=== PATIENT | female | born 1970 | race Asian ===

== ENCOUNTER 2019-03-21 11:57 | Inpatient (IN) ==
[2019-03-21] MEDS ORDERED: SODIUM CHLORIDE 0.9% 1000ML 1,000 ML IV ONE (12:30)
[2019-03-21 12:43] LABS: Basophils # (auto) 0.05 K/uL (0-0.2); Basophils % (auto) 0.5 %; Eosinophils # (auto) 0.33 K/uL (0-0.5); Hematocrit (blood only) 37.7 % (37-47); Hemoglobin 12.4 g/dL (12.0-16.0); Immature Granulocytes # (auto) 0.02 K/uL (0.00-0.02); Immature Granulocytes % (auto) 0.2 %; Lymphocytes % (auto) 17.1 %; Mean Corpuscular Hemoglobin 27.7 pg (25-34); Mean Corpuscular Hgb Conc 32.9 g/dL (32-36); Mean Corpuscular Volume 84.2 fL (80-100); Mean Platelet Volume 8.8 fL (7.4-10.4); Monocytes # (auto) 0.57 K/uL (0.11-0.59); Monocytes % (auto) 5.1 %; Neutrophils # (auto) 8.21 K/uL (1.4-6.5); Neutrophils % (auto) 74.1 %; Platelet Count 207 K/uL (130-400); RDW Coefficient of Variation 12.8 % (11.5-14.5); RDW Standard Deviation 39.2 fL (36.4-46.3); Red Blood Count 4.48 M/uL (4.2-5.4); White Blood Count 11.08 K/uL (4.8-10.8)
--- NOTE | 2019-03-21 12:50 | XRay Report ---
XR chest 1V portable CLINICAL HISTORY: Chest pain. COMPARISON STUDY: No previous studies for comparison. FINDINGS: Lung volumes are normal. There is no pneumothorax or pleural effusion. Minimal left lower l abner opacity is noted. Nodular densities projecting over both lungs suggest nipple shadows. Cardiac si ze is normal. Mediastinal contours are normal. There is slight blunting of the left costophrenic angl e. IMPRESSION: 1. Minimal left lower lung opacity which favors a mild infectious process. Post treatment radiographs are recommended to exclude the possibility of an underlying nodule. 2. Nodular densities projecting over the lower lungs which favor nipple shadows. Electronically signed by: Reno Estrada M.D. 03/21/2019 12:49 PM
[2019-03-21 13:00] LABS: Alanine Aminotransferase 18 U/L (12-78); Aspartate Aminotransferase 11 U/L (15-37); BUN Creatinine Ratio 12.6 (10-20); Blood Urea Nitrogen 10 mg/dl (7-18); Calcium 9.3 mg/dl (8.5-10.1); Carbon Dioxide 26 mmol/L (21-32); Chloride 106 mmol/L (98-107); Creatinine Clr Calc Pharmacy 88.6 ml/min; Est GFR (African American) 98.8; Est GFR (Non-African American) 85.2; Glucose 82 mg/dl (70-99); Lipase 135 U/L (73-393); Magnesium 2.2 mg/dl (1.8-2.4); Potassium 3.7 mmol/L (3.5-5.1); Sodium 137 mmol/L (136-145)
[2019-03-21 13:11] LABS: Albumin Globulin Ratio 0.9 (0.9-2); Alkaline Phosphatase 90 U/L (45-117); Bilirubin,Total 0.5 mg/dl (0.2-1); Globulin 4.4 gm/dl (2.5-4.0); Phosphorus 3.3 mg/dl (2.5-4.9); Thyroid Stimulating Hormone 0.956 uIu/ml (0.300-4.500); Total Protein 8.4 gm/dl (6.4-8.2); Troponin I < 0.015 ng/ml (0-0.045)
[2019-03-21 13:16] LABS: Pregnancy Test, Serum Negative (Negative)
[2019-03-21] MEDS ORDERED: OPTIRAY 320 125ml IV PRN (13:31)
--- NOTE | 2019-03-21 13:38 | CT Scan Report ---
CT angio chest PE protocol CT DOSE: 670.11 mGycm HISTORY: 48 years-old Female with PE, history of PE. Acute shortness of breath TECHNIQUE: Multiple CTA images of the chest were obtained after the intravenous administration of 118 ml Optiray 320. Coronal and sagittal MIPS were obtained from the axial data set and were submitted for review. All measurements were obtained according to NASCET criteria. A dose lowering technique w as utilized adhering to the principles of ALARA. COMPARISON: Chest radiograph of same day FINDINGS: CTA: Heart is normal in size without pericardial effusion. No thoracic aortic aneurysm or dissection. Ther e is patency of the imaged great vessels. No mediastinal hematoma. No central pulmonary emboli. Pulmo nary blood of the lateral basal segment left lower lobe is noted with a 4.3 x 1.7 cm pulmonary infarc t. Additional patchy groundglass opacities of the left lung base suggest atelectasis versus additiona l infarcts. There is decreased flow within the left basilar pulmonary veins compatible with associate d oligemia. No evidence of right heart strain. CT CHEST: No focal thyroid nodule or adenopathy. Trace left pleural effusion. No pneumothorax. 9 x 7 mm pleural -based solid nodule of the right lower lobe is noted on image 87 of series 4. 1.2 x 0.9 mm fissural n odule seen about the right lung base on image 86 series 4 with adjacent groundglass density. No overt pulmonary edema. Central airways appear patent. No acute process of the imaged upper abdomen. Breast tissue and soft tissues appear unremarkable. The bones appear to be intact. There is no acute fracture. IMPRESSION: 1. Pulmonary emboli of the left lower lobe with left basilar pulmonary infarctions. 2. Trace left pleural effusion with mild left basilar atelectasis. 3. There are two pleural-based solid nodules of the right lung base measuring up to 1.2 cm. Three-mon follow-up recommended.. Please refer to below summary of Fleischner criteria recommendations for follow-up of incidental CT n odules (Saurabh Mccray, Guidelines for management of small pulmonary nodules detected on CT scans: A sta tement from the Fleischner Society, Radiology 237: [phone].) SOLID NODULES Multiple nodules size: >8 mm * Low risk patients: follow-up at 3-6 months, then consider further follow-up at 18-24 months * high risk patients: follow-up at 3-6 months, then at 18-24 months if no change Note: newly detected indeterminate nodule in persons 35 years of age or older. * Low risk patients: minimal or absent history of smoking and/or other known risk factors * high risk patients: history of smoking or of other known risk factors (e.g. first degree relative with lung cancer, or exposure to asbestos, radon, uranium) * if a nodule up to 8 mm is partly solid or is ground glass further follow-up is required after 24 m onths to exclude possible slow growing adenocarcinoma (JESSIE) The above report was generated using voice recognition software. It may contain grammatical, syntax o r spelling errors. Electronically signed by: Aden Olivares M.D. 03/21/2019 1:37 PM
--- NOTE | 2019-03-21 13:52 | CT Scan Report ---
ABDOMEN AND PELVIS CT WITH IV CONTRAST HISTORY: Acute shortness of breath with left lower chest and left flank pain left flank pain TECHNIQUE: Multiaxial CT images of the abdomen and pelvis were performed following the IV administrat ion of 121 cc of Optiray 320, A dose lowering technique was utilized adhering to the principles of A MARYCARMEN. COMPARISON STUDY: CTA chest of same day. FINDINGS: Pleural-based solid nodular opacities of the right lung base measure up to 1.2 cm per trace left pleu ral effusion with pulmonary infarctions and atelectasis. No pneumatosis or pneumoperitoneum. The imag ed inferior cardiac chambers are unremarkable. The gallbladder, liver, gallbladder, spleen, pancreas and adrenal glands appear unremarkable. Kidneys, ureters and urinary bladder are within normal limits . Prominence of the uterus and endometrium with endometrium measuring up to 11 mm. Subcentimeter invo luting follicle of the right ovary. Aorta is unremarkable. The venous thrombosis of the left common a nd external femoral arteries with multiple adjacent collateral vessels. There is narrowing at the sonido gin of the left common iliac vein. No bowel obstruction or bowel wall thickening. Terminal ileum is unremarkable. Appendix not diagnosti louis visualized. Bones appear intact. IMPRESSION: 1. Pulmonary infarctions of the left lung base with trace left pleural effusion. Pleural-based nodula r opacities of the right lung base may also reflect additional pulmonary infarction. Please refer to CT chest of same day for further details. 2. Deep venous thrombosis of the left common and external iliac veins with narrowing at the origin of the common iliac vein. Correlate clinically to exclude May Thurner syndrome. Multiple adjacent colla teral vessels suggests chronic etiology. 3. No bowel obstruction or bowel wall thickening. Electronically signed by: Aden Olivares M.D. 03/21/2019 1:51 PM
--- NOTE | 2019-03-21 15:47 | History & Physical Report ---
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 Add morphine for severe pain. Consult parts specialist. Consult search developer. Home medication reconciled. Repeat labs in a.m. CODE STATUS full code. 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 She was discharged from [facility] on February 06. Patient is currently on Eliquis. Today the patient presented to the emergency room with a complaints of left- sided pleuritic chest pain which started 1 AM. Currently she is feeling better. CT scan is suggestive of PE with possible pulmonary infarcts. She will be admitted for further evaluation and management. Allergies Allergy/AdvReac Type Severity Reaction Status Date / Time No Known Allergies Allergy Unknown Verified 03/21/19 13:47 Home Medications Home Medications Medication Instructions Recorded Confirmed Type apixaban [Eliquis] 5 mg PO BID 03/21/19 03/21/19 History cholecalciferol (vitamin D3) 1,000 unit PO DAILY 03/21/19 03/21/19 History lutein 6 mg PO DAILY 03/21/19 03/21/19 History Past Med/Surg History Medical History Clot Family History Other No significant family history Social History Preferred Language: Malay Communication Ability: Effective Beliefs That Will Affect Care: None Current Living Situation: Spouse Other Information That Helps Us Care for You: No Feels Safe at Home: Yes Safety Concerns: Feels Safe At This Time Smoking Status: Never smoker Hx Alcohol Use: No Hx Substance Use: No Review of Systems Review of Systems: All systems reviewed & are unremarkable except as noted in HPI & below Respiratory: + pain on inspiration and + pain with cough Physical Exam Physical Exam: GENERAL : No acute distress EYES: No icterus, gaze conjugate NOSE: No evidence of epistaxis MOUTH: No lesions or candidiasis, mucosa moist NECK: Supple LUNGS: CTA B/L, no wheezes, rales or rhonchi HEART: Regular, rate controlled ABDOMEN: Soft, NT, ND, BS Present EXTREMITIES: No LE edema, pedal pulses intact Mild left calf tenderness NEURO: A&OX3 Results & Data Vital Signs (Past 12 Hours) Vital Signs Temp Pulse Pulse Resp BP BP Pulse Ox 03/21/19 14:34 73 16 132/86 99 03/21/19 12:06 99.3 F 91 H 20 135/83 99 Laboratory Results 03/21/19 12:34 03/21/19 12:34 Diagnostic Findings ABDOMEN AND PELVIS CT WITH IV CONTRAST HISTORY: Acute shortness of breath with left lower chest and left flank pain left flank pain TECHNIQUE: Multiaxial CT images of the abdomen and pelvis were performed following the IV administration of 121 cc of Optiray 320, A dose lowering technique was utilized adhering to the principles of ALARA. COMPARISON STUDY: CTA chest of same day. FINDINGS: Pleural-based solid nodular opacities of the right lung base measure up to 1.2 cm per trace left pleural effusion with pulmonary infarctions and atelectasis. No pneumatosis or pneumoperitoneum. The imaged inferior cardiac chambers are unremarkable. The gallbladder, liver, gallbladder, spleen, pancreas and adrenal glands appear unremarkable. Kidneys, ureters and urinary bladder are within normal limits. Prominence of the uterus and endometrium with endometrium measuring up to 11 mm. Subcentimeter involuting follicle of the right ovary. Aorta is unremarkable. The venous thrombosis of the left common and external femoral arteries with multiple adjacent collateral vessels. There is narrowing at the origin of the left common iliac vein. No bowel obstruction or bowel wall thickening. Terminal ileum is unremarkable. Appendix not diagnostically visualized. Bones appear intact. IMPRESSION: 1. Pulmonary infarctions of the left lung base with trace left pleural effusion. Pleural-based nodular opacities of the right lung base may also reflect ad ditional pulmonary infarction. Please refer to CT chest of same day for further details. 2. Deep venous thrombosis of the left common and external iliac veins with narrowing at the origin of the common iliac vein. Correlate clinically to exclude May Thurner syndrome. Multiple adjacent collateral vessels suggests chronic etiology. 3. No bowel obstruction or bowel wall thickening.[facility], [place] [phone] XRay Report Patient: MILLIE MARIEAdmit Date: 03/21/19 MR#: [id number]: [id number] [facility] [place]NOTE 2] Acct ID:[id number]: Date: 1970City Zip: [place] [address] Age: 48Location: ED Sex: F Room/Bed: Att Phy:Diagnosis: PAIN WHEN BREATHING - REF BY DR Olivia Phy: PCP,NOService Date: 03/21/19 Fam Phy:Interpreting Phy: Reno Estrada MD Admit Phy: Ordering Phy: Mathew Whitley M.D. cc: ~ XR chest 1V portable CLINICAL HISTORY: Chest pain. COMPARISON STUDY: No previous studies for comparison. FINDINGS: Lung volumes are normal. There is no pneumothorax or pleural effusion. Minimal left lower lung opacity is noted. Nodular densities projecting over both lungs suggest nipple shadows. Cardiac size is normal. Mediastinal contours are normal. There is slight blunting of the left costophrenic angle. IMPRESSION: 1. Minimal left lower lung opacity which favors a mild infectious process. Post treatment radiographs are recommended to exclude the possibility of an underlying nodule. 2. Nodular densities projecting over the lower lungs which favor nipple shadows. Electronically signed by: Reno Estrada M.D. 03/21/2019 12:49 PM Dictated: 03/21/19 1247 Transcribed: 03/21/19 1247 Code Status & VTE Plan Code Status Full code PG Care Time/CCT Total # of Minutes Spent Total Time Spent with Patient: Total time spent is greater than 50% in coordination of care (as documented) at patient's floor/unit and/or counseling patient: 60 min
--- NOTE | 2019-03-21 15:54 | Emergency Department Note ---
Entered by Louis Man acting as a scribe for Mathew Whitley MD History of Present Illness General Chief complaint: Respiratory Problems Stated complaint: PAIN WHEN BREATHING - REF BY Time Seen by Provider: 03/21/19 12:30 Source: patient Mode of arrival: ambulatory Limitations: no limitations History of Present Illness Onset (ago): hour(s) greater than 10 Location: chest Pain Consistency: + constant Maximum Pain Intensity: 4 Quality: + sharp Associated symptoms: + other (stomach pain) Treatments prior to arrival: other (Tylenol ) The patient is a 48 year old femal who presents to the Emergency Room with complaints of an episode of constant sharp left lower flank pain with respiration that started this morning 11 hours prior to arrival. The patient states that she was unable to sleep early this morning and took some Tylenol upon being woken up with sharp pain. The patient denies any stomach pain. The patient notes that she was able to go back to sleep. She reports that she work up a few hours later and the pain seemed better. The patient notes the pain reports that she was recently admitted at [place] for six days due to abnormal blood work. She reports that that that she received an MRI for her brain two days ago. She reports that she received testing for her feet, liver, lungs, and brain. She states that she has a history blood clots. The patient notes that she had brain bleeding in her head. She notes that her platelet tests were very low and that she has been on Eliquis. Home Medications Home Medications Medication Instructions Recorded Confirmed Type apixaban [Eliquis] 5 mg PO BID 03/21/19 03/21/19 History cholecalciferol (vitamin D3) 1,000 unit PO DAILY 03/21/19 03/21/19 History lutein 6 mg PO DAILY 03/21/19 03/21/19 History Allergies Allergy/AdvReac Type Severity Reaction Status Date / Time No Known Allergies Allergy Unknown Verified 03/21/19 13:47 Past Med/Surg History Medical History Clot Family History Other No significant family history Social History Preferred Language: Turkish Communication Ability: Effective Beliefs That Will Affect Care: None Current Living Situation: Spouse Other Information That Helps Us Care for You: No Feels Safe at Home: Yes Safety Concerns: Feels Safe At This Time Smoking Status: Never smoker Hx Alcohol Use: No Hx Substance Use: No Review of Systems See HPI for pertinent positives & negatives. and A total of 10 systems reviewed and were otherwise negative Physical Exam Vital Signs Vital Signs - 24 hr 03/21/19 12:06 03/21/19 12:52 03/21/19 13:13 Temperature 37.4 C Temperature Source Oral Sepsis Recent Fever Within 48 Hours No Sepsis New/Unexplained Change in Mental Status No Sepsis Action Taken by Nursing No Action Required Pulse Rate 91 H Pulse Rate [Right Finger] Pulse Rhythm [Right Finger] Pulse Strength [Right Finger] Respiratory Rate 20 Respiratory Effort / Characteristics Non-Labored Spontaneous Respiratory Depth Normal Respiratory Pattern Regular Blood Pressure 135/83 Blood Pressure [Right Arm] Blood Pressure Mean 100 Blood Pressure Mean [Right Arm] Blood Pressure Position Sitting Blood Pressure Position [Right Arm] Pulse Oximetry 99 Oxygen Delivery Method Room Air Room Air Room Air 03/21/19 14:34 Temperature Temperature Source Sepsis Recent Fever Within 48 Hours Sepsis New/Unexplained Change in Mental Status Sepsis Action Taken by Nursing Pulse Rate Pulse Rate [Right Finger] 73 Pulse Rhythm [Right Finger] Regular Pulse Strength [Right Finger] Normal Respiratory Rate 16 Respiratory Effort / Characteristics Non-Labored Respiratory Depth Normal Respiratory Pattern Regular Blood Pressure Blood Pressure [Right Arm] 132/86 Blood Pressure Mean Blood Pressure Mean [Right Arm] 101 Blood Pressure Position Blood Pressure Position [Right Arm] Lying Pulse Oximetry 99 Oxygen Delivery Method Room Air GENERAL: Awake, alert, uncomfortable-appearing, in no distress HENT: NC/AT. Oropharynx with dry mucous membranes and otherwise unremarkable. EYES: Normal conjunctiva. Sclera non-icteric. EOMI. No nystamgus. PEARRL. NECK: Supple. No nuchal rigidity. FROM. No JVD. RESPIRATORY: Diminished BS left base, otherwise CTAB. CARDIAC: Regular rate, normal rhythm. Extremities warm and well perfused. Pulses equal. ABDOMEN: Soft, non-distended. No tenderness to palpation. No rebound or guarding. No masses. RECTAL: Deferred. MUSCULOSKELETAL: Chest examination reveals no tenderness. The back is symmetrical on inspection without obvious abnormality. There is no CVA tenderness to palpation. No joint edema. LOWER EXTREMITIES: Calves are equal size bilaterally and non-tender. No edema. No discoloration. NEURO: Normal sensorium. No sensory or motor deficits noted. SKIN: No rash or jaundice noted. Course 1247: The patient was evaluated in room B09. A complete history and physical exam was performed. 1511: I dicussed the patient's case, Chirag [facility] hospitalist. The patient will be evaluated for further management. Administered Medications Apixaban (Eliquis) 5 mg PO BID SONIA Stop: 04/20/19 20:59 Last Admin: 03/21/19 21:11 Dose: 5 mg Documented by: [id number] Discontinued Medications Sodium Chloride (Nss 1000ml) 1,000 mls @ 999 mls/hr IV .Q1H1M ONE Stop: 03/21/19 13:30 Last Infusion: 03/21/19 14:20 Dose: 0 mls/hr Documented by: [id number] Admin: 03/21/19 13:03 Dose: 999 mls/hr Documented by: [id number] Ioversol (Optiray 320 125ml) 121 ml IV ONCE PRN PRN Reason: Interaction Checking Stop: 03/25/19 13:30 Last Admin: 03/21/19 13:31 Dose: 121 ml Documented by: [id number] Medical Decision Making Differential Diagnosis Differential diagnosis: Etiologies such as shingles, musculoskeletal pain, pericarditis, myocarditis, cardiac ischemia, pericardial tamponade, pneumonia, pneumothorax, pleural effusion, hemothorax, pleurisy, aortic pathology, pulmonary embolism, intra- abdominal process, as well as others were considered. Medical Records Attestation: I reviewed the patient's medical records. Home Medications Current Medication List: was personally reviewed by me Laboratory Data Attestation: I reviewed the patient's lab results. Result diagrams: 03/21/19 12:34 03/21/19 12:34 Lab Results 03/21/19 03/21/19 03/21/19 Range/Units 12:34 12:34 12:34 WBC 11.08 H (4.8-10.8) K/uL RBC 4.48 (4.2-5.4) M/uL Hgb 12.4 (12.0-16.0) g/dL Hct 37.7 (37-47) % MCV 84.2 (80-100) fL MCH 27.7 (25-34) pg MCHC 32.9 (32-36) g/dL RDW Std Deviation 39.2 (36.4-46.3) fL RDW Coeff of Aimee 12.8 (11.5-14.5) % Plt Count 207 (130-400) K/uL MPV 8.8 (7.4-10.4) fL Immature Gran % (Auto) 0.2 % Neut % (Auto) 74.1 % Lymph % (Auto) 17.1 % [place] % (Auto) 5.1 % Eos % (Auto) 3.0 % Baso % (Auto) 0.5 % Immature Gran # (Auto) 0.02 (0.00-0.02) K/uL Neut # (Auto) 8.21 H (1.4-6.5) K/uL Lymph # (Auto) 1.90 (1.2-3.4) K/uL [place] # (Auto) 0.57 (0.11-0.59) K/uL Eos # (Auto) 0.33 (0-0.5) K/uL Baso # (Auto) 0.05 (0-0.2) K/uL Sodium 137 (136-145) mmol/L Potassium 3.7 (3.5-5.1) mmol/L Chloride 106 (98-107) mmol/L Carbon Dioxide 26 (21-32) mmol/L Anion Gap 5.0 (3-11) BUN 10 (7-18) mg/dl Creatinine 0.82 (0.6-1.2) mg/dl Est Cr Clr Drug Dosing 88.6 ml/min Est GFR ( Amer) 98.8 Est GFR (Non-Af Amer) 85.2 BUN/Creatinine Ratio 12.6 (10-20) Glucose 82 (70-99) mg/dl Calcium 9.3 (8.5-10.1) mg/dl Phosphorus 3.3 (2.5-4.9) mg/dl Magnesium 2.2 (1.8-2.4) mg/dl Total Bilirubin 0.5 (0.2-1) mg/dl AST 11 L (15-37) U/L ALT 18 (12-78) U/L Alkaline Phosphatase 90 (45-117) U/L Troponin I < 0.015 (0-0.045) ng/ml Total Protein 8.4 H (6.4-8.2) gm/dl Albumin 4.0 (3.4-5.0) gm/dl Globulin 4.4 H (2.5-4.0) gm/dl Albumin/Globulin Ratio 0.9 (0.9-2) Lipase 135 (73-393) U/L TSH 0.956 (0.300-4.500) uIu/ml HCG, Qual Negative (Negative) Imaging Data Radiologist's Impression: Radiology results as stated below per my review and the radiologist's interpretation: XR chest 1V portable CLINICAL HISTORY: Chest pain. COMPARISON STUDY: No previous studies for comparison. FINDINGS: Lung volumes are normal. There is no pneumothorax or pleural effusion. Minimal left lower lung opacity is noted. Nodular densities projecting over both lungs suggest nipple shadows. Cardiac size is normal. Mediastinal contours are normal. There is slight blunting of the left costophrenic angle. IMPRESSION: 1. Minimal left lower lung opacity which favors a mild infectious process. Post treatment radiographs are recommended to exclude the possibility of an underlying nodule. 2. Nodular densities projecting over the lower lungs which favor nipple shadows. Electronically signed by: Reno Estrada M.D. 03/21/2019 12:49 PM [address]OMEN AND PELVIS CT WITH IV CONTRAST HISTORY: Acute shortness of breath with left lower chest and left flank pain left flank pain TECHNIQUE: Multiaxial CT images of the abdomen and pelvis were performed following the IV administration of 121 cc of Optiray 320, A dose lowering technique was utilized adhering to the principles of ALARA. COMPARISON STUDY: CTA chest of same day. FINDINGS: Pleural-based solid nodular opacities of the right lung base measure up to 1.2 cm per trace left pleural effusion with pulmonary infarctions and atelectasis. No pneumatosis or pneumoperitoneum. The imaged inferior cardiac chambers are unremarkable. The gallbladder, liver, gallbladder, spleen, pancreas and adrenal glands appear unremarkable. Kidneys, ureters and urinary bladder are within normal limits. Prominence of the uterus and endometrium with endometrium me asuring up to 11 mm. Subcentimeter involuting follicle of the right ovary. Aorta is unremarkable. The venous thrombosis of the left common and external femoral arteries with multiple adjacent collateral vessels. There is narrowing at the origin of the left common iliac vein. No bowel obstruction or bowel wall thickening. Terminal ileum is unremarkable. Appendix not diagnostically visualized. Bones appear intact. IMPRESSION: 1. Pulmonary infarctions of the left lung base with trace left pleural effusion. Pleural-based nodular opacities of the right lung base may also reflect additional pulmonary infarction. Please refer to CT chest of same day for further details. 2. Deep venous thrombosis of the left common and external iliac veins with narrowing at the origin of the common iliac vein. Correlate clinically to exclude May Thurner syndrome. Multiple adjacent collateral vessels suggests chronic etiology. 3. No bowel obstruction or bowel wall thickening. Electronically signed by: Aden Olivares M.D. 03/21/2019 1:[address] angio chest PE protocol CT DOSE: 670.11 mGycm HISTORY: 48 years-old Female with PE, history of PE. Acute shortness of breath TECHNIQUE: Multiple CTA images of the chest were obtained after the intravenous administration of 118 ml Optiray 320. Coronal and sagittal MIPS were obtained from the axial data set and were submitted for review. All measurements were obtained according to NASCET criteria. A dose lowering technique was utilized adhering to the principles of ALARA. COMPARISON: Chest radiograph of same day FINDINGS: CTA: Heart is normal in size without pericardial effusion. No thoracic aortic aneurysm or dissection. There is patency of the imaged great vessels. No mediastinal hematoma. No central pulmonary emboli. Pulmonary blood of the lateral basal segment left lower lobe is noted with a 4.3 x 1.7 cm pulmonary infarct. Additional patchy groundglass opacities of the left lung base suggest atelectasis versus additional infarcts. There is decreased flow within the left basilar pulmonary veins compatible with associated oligemia. No evidence of right heart strain. CT CHEST: No focal thyroid nodule or adenopathy. Trace left pleural effusion. No pneumothorax. 9 x 7 mm pleural-based solid nodule of the right lower lobe is noted on image 87 of series 4. 1.2 x 0.9 mm fissural nodule seen about the right lung base on image 86 series 4 with adjacent groundglass density. No overt p ulmonary edema. Central airways appear patent. No acute process of the imaged upper abdomen. Breast tissue and soft tissues appear unremarkable. The bones appear to be intact. There is no acute fracture. IMPRESSION: 1. Pulmonary emboli of the left lower lobe with left basilar pulmonary infarctions. 2. Trace left pleural effusion with mild left basilar atelectasis. 3. There are two pleural-based solid nodules of the right lung base measuring up to 1.2 cm. Three-month follow-up recommended.. Please refer to below summary of Fleischner criteria recommendations for follow- up of incidental CT nodules (Saurabh Mccray, Guidelines for management of small pulmonary nodules detected on CT scans: A statement from the Fleischner Society, Radiology 237: [phone].) SOLID NODULES Multiple nodules size: >8 mm * Low risk patients: follow-up at 3-6 months, then consider further follow-up at 18-24 months * high risk patients: follow-up at 3-6 months, then at 18-24 months if no change Note: newly detected indeterminate nodule in persons 35 years of age or older. * Low risk patients: minimal or absent history of smoking and/or other known risk factors * high risk patients: history of smoking or of other known risk factors (e.g. first degree relative with lung cancer, or exposure to asbestos, radon, uranium) * if a nodule up to 8 mm is partly solid or is ground glass further follow-up is required after 24 months to exclude possible slow growing adenocarcinoma (JESSIE) The above report was generated using voice recognition software. It may contain grammatical, syntax or spelling errors. Electronically signed by: Aden Olivares M.D. 03/21/2019 1:37 PM ECG Data Attestation: I personally reviewed and interpreted this ECG as follows: Indication: chest pain Rate (beats per minute): 76 Rhythm: normal sinus Findings: + other (rightward axis); no PAC, no PVC, no acute ischemic change and no ectopy Comparison ECG Date: no prior available Blood Pressure Blood Pressure Findings: Elevated blood pressure Blood Pressure Disposition: further management by hospitalist MDM Narrative The patient is a pleasant 48 y/o woman with a complicated recent pmhx of ex tensive DVT/PE current on Eliquis, cerebellar mass with bleed admitted to [facility] for ~1 week in January for extensive test with 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 On arrival the patient is uncomfortable but in NAD, AF, HR 90s and otherwise VSS. EKG without evidence of acute ischemia. CXR with left lower lobe opacity further characterized on CT. WBC 11.08, nonspecific. H/H and platelets wnl. Chemistry without acidosis. LFTs and electrolytes unremarkable. Troponin negative. CTA of the chest and CT abd/pelvis performed and demonstrates extensive thrombosis including pulmonary emboli of LLL with associated basilar pulmonary infarctions as well as 2 pleural base solid nodules. Also seen are DVT of left common and external iliac veins. Comment is made of narrowing of the origin of the common iliac vein, which given patient's extensive clot burden could be suggestive of May Thurner syndrome. At the time of these CT results were still attempting to obtain patient's prior records for comparison. However, given the patient acute symptoms today in the setting of what she reports as a month or so of being symptom free admission for further evaluation is reasonable. Patient was agr eeable with this. Case was discussed with Dr. Moe, [facility] hospitalist, who will evaluate the patient for admission. Will defer management of anticoagulation to admitting team. Records, which show similar clot burden in January, ultimately were received via fax from [facility], which were placed in patient chart. Given patient's acute symptoms, admission still appropriate. Admitting team made aware and had already been able to view in [facility] EMR. 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 I confirm that the note above accurately reflects all work, treatment, procedures, and medical decision making performed by me.
[2019-03-21] MEDS ORDERED: ONDANSETRON INJ 2 MG/ML 2 ML VIAL IV PRN (17:38)
[2019-03-21] MEDS ORDERED: ALUMINUM/MAGNESIUM SUSP 30 ML UDC PO PRN (17:38)
[2019-03-21] MEDS ORDERED: MoRPHine SULFATE 2 MG/ML CARP IV PRN (17:38)
[2019-03-21] MEDS ORDERED: MAGNESIUM HYDROXIDE SUSP 30 ML UDC PO PRN (17:38)
[2019-03-21] MEDS ORDERED: ACETAMINOPHEN 325 MG TAB PO PRN (17:38)
[2019-03-21] MEDS ORDERED: POLYETHYLENE (MIRALAX) 17 GM PACK PO PRN (17:38)
[2019-03-21] MEDS: APIXABAN 5 MG TABLET PO SCH (21:11)
[2019-03-22 06:17] LABS: Hemoglobin 10.8 g/dL (12.0-16.0); Mean Corpuscular Hemoglobin 27.5 pg (25-34); Mean Corpuscular Hgb Conc 32.7 g/dL (32-36); Platelet Count 207 K/uL (130-400); RDW Coefficient of Variation 12.8 % (11.5-14.5); RDW Standard Deviation 39.4 fL (36.4-46.3); Red Blood Count 3.93 M/uL (4.2-5.4); White Blood Count 8.45 K/uL (4.8-10.8)
[2019-03-22 06:50] LABS: BUN Creatinine Ratio 10.2 (10-20); Calcium 8.3 mg/dl (8.5-10.1); Creatinine Clr Calc Pharmacy 93.8 ml/min; Est GFR (African American) 108.3; Est GFR (Non-African American) 93.4; Potassium 3.8 mmol/L (3.5-5.1)
[2019-03-22] MEDS: APIXABAN 5 MG TABLET PO SCH (08:37)
[2019-03-22] MEDS ORDERED: CHOLECALCIFEROL 1,000 UNITS TAB PO SCH (09:00)
[2019-03-22] MEDS ORDERED: NON-FORMULARY MEDICATION (Lutein 6 MG) PO SCH (09:00)
--- NOTE | 2019-03-22 09:15 | Pulmonary Consultation ---
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 She presents now with some chest discomfort and was found to have a pulmonary infarct left lower lobe filling defect. Her prior imaging or not available to isa siu. Recommendations: 1. PE: It is unclear if the current filling defect represents a new thromb oembolic event or a resolving PE or chronic PE from her prior events. The patient apparently has copies of her imaging at home. I requested that they be brought in and scanned into the system. This should be correlated with the current film. If the current defect represents a new clot, I would consider this patient in Eliquis failure and consider anticoagulation with Lovenox and/or Coumadin. If it is a chronic clot, the patient may continue on her Eliquis. Hematology consultation is currently pending. Will defer thrombophilia evaluation. Her eosinophilia appears to have resolved. 2. Pulmonary infarct: This is not an unsuspected finding. Suspect this should resolve over time. Repeat CT scanning in 3 months would be reasonable if the patient improves clinically. She will require serial evaluation for her nodules as noted below. As needed anti-inflammatories for pain. 3. Pulmonary nodules: Again we are not able to review the patient's prior imaging. Hopefully these are stable finding. If they are stable dating back to CT scans from 2 months ago, repeat CT scan in 6 months would be reasonable. From a pulmonary perspective, the patient is hemodynamically stable and does not require any oxygen. She can likely be dismissed from the hospital with outpatient follow-up with her provider in [place] as soon as her plan for anticoagulation is formalized as noted above (2) Pulmonary infarction: (3) Pulmonary nodule: History of Present Illness Attending Physician: Tang Lloyd MD History of Present Illness Asked by the hospitalist service to evaluate this patient admitted with a pulmonary embolism. History is obtained from review the electronic medical record and interview the patient at the bedside. The patient is a very pleasant 48-year-old female who was recently admitted to [facility] back in January. 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 She was seen in consultation by quality measurement specialist. Unfortunately we do not have any records to review from that hospitalization. The patient was eventually dismissed from the hospital and is having serial CBCs drawn. Her eosinophilia has resolved. She has been anticoagulated on Eliquis. The patient states that she developed some left-sided pleuritic chest pain around 1:00 in the morning yesterday. She was seen in the emergency room and had a repeat CT angiogram performed this revealed a small evidence of pulmonary infarct as well as a filling defect within the left lower lobe. She was admitted to the hospitalist service and hematology and pulmonary consultation were requested. They continued her home dose of Eliquis. The patient denies any significant lower extremity edema or presyncope. She has not had any palpitations. She denies prior chest pressure. She is currently feeling better and states that her discomfort resolves completely with as needed Tylenol. She states she did have a follow-up ultrasound performed Allergies Allergy/AdvReac Type Severity Reaction Status Date / Time No Known Allergies Allergy Unknown Verified 03/21/19 13:47 Home Medications Home Medications Medication Instructions Recorded Confirmed Type apixaban [Eliquis] 5 mg PO BID 03/21/19 03/21/19 History cholecalciferol (vitamin D3) 1,000 unit PO DAILY 03/21/19 03/21/19 History lutein 6 mg PO DAILY 03/21/19 03/21/19 History Patient History Medical History Clot Family History Other No significant family history Social History Preferred Language: Tajik Communication Ability: Effective Beliefs That Will Affect Care: None Current Living Situation: Spouse Other Information That Helps Us Care for You: No Feels Safe at Home: Yes Safety Concerns: Feels Safe At This Time Smoking Status: Never smoker Hx Alcohol Use: No Hx Substance Use: No Review of Systems Review of Systems: All systems reviewed & are unremarkable except as noted in HPI & below Physical Exam Constitutional: WD/WN, vitals as above Neck: trachea midline, no thyromegaly Respiratory: normal respiratory effort, lungs clear to auscultation Cardiovascular: RRR, no murmur, no edema Gastrointestinal (Abdomen): normal bowel sounds, soft, nontender, no hepatospl enomegaly Musculoskeletal: Extremities: extremities normal to inspection Skin: no rashes, warm and dry Neurologic: Nonfocal exam Lymphatic: no cervical lymphadenopathy Results & Data Vital Signs (Past 12 Hours) Vital Signs Temp Pulse Resp BP Pulse Ox 03/22/19 07:41 37.3 C 87 16 134/77 98 03/22/19 03:29 37.5 C 81 16 120/73 97 03/21/19 23:30 37.3 C 80 18 134/86 98 Laboratory Results 03/22/19 05:51 03/22/19 05:[address] angiogram from 03/21/[address] angio chest PE protocol CT DOSE: 670.11 mGycm HISTORY: 48 years-old Female with PE, history of PE. Acute shortness of breath TECHNIQUE: Multiple CTA images of the chest were obtained after the intravenous administration of 118 ml Optiray 320. Coronal and sagittal MIPS were obtained from the axial data set and were submitted for review. All measurements were obtained according to NASCET criteria. A dose lowering technique was utilized adhering to the principles of ALARA. COMPARISON: Chest radiograph of same day FINDINGS: CTA: Heart is normal in size without pericardial effusion. No thoracic aortic aneurysm or dissection. There is patency of the imaged great vessels. No mediastinal hematoma. No central pulmonary emboli. Pulmonary blood of the lateral basal segment left lower lobe is noted with a 4.3 x 1.7 cm pulmonary infarct. Additional patchy groundglass opacities of the left lung base suggest atelectasis versus additional infarcts. There is decreased flow within the left basilar pulmonary veins compatible with associated oligemia. No evidence of right heart strain. CT CHEST: No focal thyroid nodule or adenopathy. Trace left pleural effusion. No pneumothorax. 9 x 7 mm pleural-based solid nodule of the right lower lobe is noted on image 87 of series 4. 1.2 x 0.9 mm fissural nodule seen about the right lung base on image 86 series 4 with adjacent groundglass density. No overt pulmonary edema. Central airways appear patent. No acute process of the imaged upper abdomen. Breast tissue and soft tissues appear unremarkable. The bones appear to be intact. There is no acute fracture. IMPRESSION: 1. Pulmonary emboli of the left lower lobe with left basilar pulmonary infarctions. 2. Trace left pleural effusion with mild left basilar atelectasis. 3. There are two pleural-based solid nodules of the right lung base measuring up to 1.2 cm. Three-month follow-up recommended.. PG Care Time/CCT Total # of Minutes Spent Total Time Spent with Patient: Total time spent is greater than 50% in coordination of care (as documented) at patient's floor/unit and/or counseling patient:
--- NOTE | 2019-03-22 14:12 | Consultation Report ---
DATE OF CONSULTATION: 03/22/2019 REASON FOR CONSULTATION: Left lower lobe pulmonary infarct. HISTORY OF PRESENT ILLNESS: Epifanio is a pleasant 48-year-old female who was admitted to [facility] on 01/19 with unexplained migratory left-sided chest pain. The patient had been admitted and subsequently discharged from the [facility] after she had struggled with subacute onset fever, fatigue and subsequently shortness of breath. During her admission, she was found to have a significant white cell elevation and mild thrombocytopenia. White cell differential revealed a predominance of eosinophils and was worked up for hypereosinophilic syndrome. The appropriate indices were measured and found to be negative for hypereosinophilic syndrome. Bone marrow biopsy and aspirate were also performed, which again revealed an eosinophilic infiltrate and hypercellularity, but no direct evidence of a myeloproliferative disorder. Nonetheless, she was also diagnosed with pulmonary embolism at that time and was started on Eliquis 5 mg p.o. b.i.d. Pulmonary service has visited with this young lady and I agree with their approach in obtaining copies of her CTA chest that was performed at [facility] comparing to our films done here to see if there is indeed progression of thrombus. If proven not to be the case, would keep her on Eliquis. Her pain has now subsided with minimal intervention. She will follow up with the table cover folder at [facility] regarding the hypereosinophilia. Review of her peripheral counts upon admission again reveals a mildly elevated WBC count of 11,000, hemoglobin 12.4 grams per deciliter and platelet count of 207,000. Careful examination of the patient's white cell differential confirms a predominant neutrophilia and her eosinophilic absolute number is well within normal limits. PAST MEDICAL HISTORY: Significant for pulmonary embolism. MEDICATIONS: Prior to admission include cholecalciferol 1000 units p.o. daily, Eliquis 5 mg p.o. b.i.d., Lutein 6 mg p.o. daily. ALLERGIES: No known drug allergies. SOCIAL HISTORY: The patient is . She is an artillery or naval gunfire observer. She is a nonsmoker, nondrinker. FAMILY HISTORY: Unremarkable for hematologic malignancy or neoplasia. REVIEW OF SYSTEMS: As per HPI, most notably for migratory left-sided chest pain, specifically on inspiration. GENERAL: She denies fevers, chills or sweats. She is not anorexic or currently losing weight. SKIN: No rashes or lesions. HEENT: Negative for headaches, lightheadedness or dizziness. No acute visual or hearing deficits. No sinus symptoms, sore throat or dysphagia. LYMPH: No history of lymphoproliferative disease. CARDIAC: Negative for coronary artery disease, no angina or palpitations. PULMONARY: Positive for recent diagnosis of pulmonary embolism/pulmonary infarct. She is not acutely short of breath. She is not dyspneic. Negative for cough. No hemoptysis. GASTROINTESTINAL: Negative for abdominal pain, nausea, vomiting, diarrhea or constipation, hematochezia or melena of stools. GENITOURINARY: No hematuria, dysuria or urinary incontinence. PSYCHIATRIC: Negative for anxiety, depression or psychoses. ENDOCRINE: Negative for diabetes or thyroid disease. MUSCULOSKELETAL: Negative for focal muscle weakness. No arthralgias by history. NEUROLOGIC: Negative for seizure, stroke, or migraine headache. HEMATOLOGIC: Again, positive for episodic eosinophilia. Her WBCs are mildly elevated with normal hemoglobin on admission and normal platelet count. PHYSICAL EXAMINATION: GENERAL: Very pleasant 48-year-old female with at bedside, in no acute distress. VITAL SIGNS: Temperature 36.0, pulse 88, respiratory rate 16, blood pressure 132/86. SKIN: Warm, dry, noncyanotic without petechia, rash or ecchymosis. HEENT: Head is atraumatic, normocephalic. Eyes: PERRLA, EOMI. Nares are patent without rhinorrhea or discharge. Throat is clear. Tongue midline. Mucous membranes are moist. NECK: Supple without JVD or thyromegaly. HEART: Regular rate and rhythm. No clicks, rubs, murmurs or gallops. LUNGS: Clear to auscultation bilaterally. ABDOMEN: Soft, nontender, nondistended, without palpable hepatosplenomegaly. EXTREMITIES: No calf tenderness or swelling. No clubbing, cyanosis or edema. NEUROLOGICALLY: She is grossly intact. Cranial nerves are grossly intact. LABORATORY DATA: WBC count 8450, hemoglobin 10.8, platelet count 207,000. Sodium 138, potassium 3.8, chloride 108, carbon dioxide 26, creatinine 0.76, BUN 8. IMPRESSION: 1. Pulmonary embolism/pulmonary infarct. 2. History of pulmonary nodules. 3. History of hypereosinophilia. PLAN: I have been asked by the hospitalist to render an opinion regarding anticoagulation moving forward. I appreciate pulmonary's input and agree with their approach. If after comparison of images done at [place] to the images done at [facility], should there be direct evidence of increased thrombotic burden, I would then convert her to Lovenox and Coumadin and thus discontinue Eliquis. Ms. Segal will follow up with hematology service to [facility] for the hypereosinophilia which appears to have completely resolved. Her platelets have also returned to normal. Thus, cannot explain the hypereosinophilia without history of allergy or exposure to parasites. Therefore, I will not schedule her for followup locally unless requested to do so. I have nothing further to add at this juncture. I will be family practitioner the rest of the weekend if there are further questions. Thank you very much for allowing me to participate in her care.
--- NOTE | 2019-04-03 20:46 | Discharge Summary ---
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 She was discharged from [facility] on February 06. Patient is currently on Eliquis. Today the patient presented to the emergency room with a complaints of left- sided pleuritic chest pain which started 1 AM. Currently she is feeling better. CT scan is suggestive of PE with possible pulmonary infarcts. She will be admitted for further evaluation and management. Admission Exam Per Admitting Provider GENERAL : No acute distress EYES: No icterus, gaze conjugate NOSE: No evidence of epistaxis MOUTH: No lesions or candidiasis, mucosa moist NECK: Supple LUNGS: CTA B/L, no wheezes, rales or rhonchi HEART: Regular, rate controlled ABDOMEN: Soft, NT, ND, BS Present EXTREMITIES: No LE edema, pedal pulses intact Mild left calf tenderness NEURO: A&OX3 Principal Diagnosis Pleuritic chest pain Subacute pulmonary embolism Discharge Exam Constitutional WD/WN, vitals as above no acute distress Eyes + anicteric sclerae; normal pupil size ENMT external ear and nose normal, oropharynx normal Neck trachea midline Respiratory normal respiratory effort, lungs clear to auscultation Gastrointestinal (Abdomen) Inspection/Auscultation: normal bowel sounds Percussion/Palpation: abdomen soft; abdomen nontender, no guarding and abdomen not rigid Musculoskeletal no cyanosis or clubbing, extremities motor strength 5/5 Skin no rashes, warm and dry Psychiatric A+Ox3, euthymic affect Discharge Data Allergies Allergy/AdvReac Type Severity Reaction Status Date / Time No Known Allergies Allergy Unknown Verified 03/21/19 13:47 Consultations 03/21/19 15:10 ED Decision to Admit Stat 03/21/19 17:38 Consult Hematology Routine Consult Pulmonology Routine 03/22/19 15:42 Burn CD for patient Routine Ordered Studies 03/21/19 13:00 CT abd pelvis IV con only Stat CT angio chest PE protocol Stat Hospital Course (1) Pulmonary embolism: (2) Pulmonary infarction: (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 With comparison of films to her prior [place] films the pulmonary embolisms appear to be improving. Her pain was under control with acetaminophen only therefore no changes to her medications were made. She will follow up with her [facility] Underwriting Consultant as previously planned. Total Time Total Time Spent Total Time Spent (In Minutes): 55 Total Time Includes: Examination of the Patient, Discharge Planning, Medication Reconciliation and Communication With Other Providers Discharge Plan Discharge Items Patient Disposition: Home - Self-Care Reason For Visit: PE Discharge Diagnosis: Resolving pulmonary embolism Pleuritis due to pulmonary infarction Activity: Resume your previous activity Non-emergency contact: Primary Care Provider Call non-emergency contact if: you have any medication questions and your symptoms worsen Follow-up/Referrals: William Gamez [Primary Care Provider] - Diet: Regular Addtl Attending Provider Instructions: You were seen overnight due to left sided chest pain. Pulmonary emboli were found on CT scan. However when reviewed with prior imaging they were noted to be improving (formal report pending). Pain was under control with acetaminophen therefore recommend just continuing this. Tramadol also prescribed by PCP can be taken if increasing pain. Please follow up with your master baker as previously arranged. Pending Studies at Discharge: Yes (formal radiology addendum for comparison) Stand-Alone Forms: My [facility] Medications and DC Order Prescriptions: Continued lutein 6 mg Capsule 6 mg PO DAILY RF: 0 cholecalciferol (vitamin D3) 1,000 unit Capsule 1,000 unit PO DAILY RF: 0 Eliquis 5 mg tablet 5 mg PO BID RF: 0 Discharge Orders: Discharge Order (Routine); Ordered 03/22/19 Ordered By: Tang Lloyd Admission Data Admit Date/Time: 03/21/19 16:10 Attending Provider: Tang Lloyd Admit Provider: Cristhian Moe Primary Care Provider: William Gamez Other Providers: Cristhian Moe ; Julio Lutz V ; Ld Hedrick Other Interventions: Discharge Summary Assessment (RN) Last Done: 03/22/19 16:04 DC Date/Time DO NOT enter until pt leaves facility: 03/22/19 17:24
== END 2019-03-22 17:24 | disposition home or self-care (01) | DRG 176 ==
LOC: ED 11:57 → 2E 16:10 → SUATTDRO 16:10 → 2E 17:20